=== PATIENT | male | born 2000 | race Hispanic/Latino ===

== ENCOUNTER 2020-03-21 08:45 | Emergency (ER) | payer OTHER ==
[2020-03-21] MEDS ORDERED: SODIUM CHLORIDE 0.9% 1000ML 1,000 ML IV ONE ×2 (09:07→09:58)
[2020-03-21 09:08] LABS: BASOPHILS % (AUTO) 0.4 % (0.0-5.0); EOSINOPHILS % (AUTO) 4.3 % (0.0-8.0); HEMATOCRIT 39.9 % (42-54); LYMPHOCYTES % (AUTO) 38.5 % (21.0-51.0); MEAN CORPUSCULAR HEMOGLOBIN 30.2 pg (27.0-33.0); MEAN CORPUSCULAR HGB CONC 34.6 g/dL (32.0-36.0); MEAN CORPUSCULAR VOLUME 87.3 fL (80-100); MONOCYTES % (AUTO) 12.4 % (3.0-13.0); NEUTROPHILS % (AUTO) 44.3 % (40.0-77.0); PLATELET COUNT (AUTO) 254 K/uL (130-400); RED BLOOD CELL COUNT(AUTO) 4.57 MIL/uL (4.50-6.20); RED CELL DISTRIBUTION WIDTH 12.9 % (11.0-15.5); WHITE BLOOD COUNT (AUTO) 6.7 K/uL (4.8-10.8)
[2020-03-21] MEDS ORDERED: DiphenhydrAMINE HCL 50 MG/ML VIAL ONE (09:09)
[2020-03-21] MEDS ORDERED: ONDANSETRON HCL 4 MG/2 ML VIAL ONE (09:09)
[2020-03-21] MEDS ORDERED: MORPHINE SULFATE 4 MG/1ML SYG ONE (09:10)
[2020-03-21 09:14] LABS: APPEARANCE,URINE Clear (CLEAR); BILIRUBIN,URINE Negative (NEGATIVE); COLOR,URINE Yellow (YELLOW); GLUCOSE, URINE (UA) Negative (NEGATIVE); KETONES,URINE Trace mg/dL (NEGATIVE); LEUKOCYTE ESTERASE ,URINE Negative (NEGATIVE); NITRATE,URINE Negative (NEGATIVE); OCCULT BLOOD,URINE Negative (NEGATIVE); PH,URINE 5.5 (5.0-8.0); PROTEIN,URINE Negative (NEGATIVE)
[2020-03-21 09:29] LABS: ALBUMIN 4.4 g/dL (3.5-5.0); BILIRUBIN,TOTAL 0.8 mg/dL (0.2-1.0); CREATININE 1.3 mg/dL (0.5-1.5); TOTAL PROTEIN, SERUM 8.4 g/dL (6.0-8.3)
[2020-03-21 09:30] LABS: POTASSIUM 2.9 mmol/L (3.5-5.1)
[2020-03-21] MEDS ORDERED: POTASSIUM CHLORIDE 10MEQ/100ML 100 ML IV ONE (09:57)
[2020-03-21] MEDS ORDERED: LIDOCAINE HCL-MPF 1% 2ML VIAL ONE (09:57)
[2020-03-21] MEDS ORDERED: IOHEXOL-350 75 ML VIAL IV ONE (09:58)
[2020-03-21 10:01] LABS: RBC,URINE None Seen /HPF (0-1); WBC,URINE 0-1 /HPF (0-1)
[2020-03-21 10:02] LABS: BACTERIA,URINE Few /HPF (None Seen); SQUAMOUS EPITHELIAL CELL,UR 0-2 /HPF (0-2)
[2020-03-21] MEDS ORDERED: LORAZEPAM 2 MG/ML 1 ML VIAL ONE (10:28)
== END 2020-03-21 12:14 | disposition home or self-care (01) ==
LOC: EDH 08:45
DX: R10.30 Lower abdominal pain, unspecified (principal); Z91.013 Allergy to seafood
CPT/HCPCS: 36415; 74177; 80053; 81001; 82150; 83690; 85025; 96361; 96365; 96366; 96375; 99285; J1200; J2060; J2270; J2405; J3490; J7030 ×2; Q9967

== ENCOUNTER 2024-05-25 15:53 | Emergency (ER) | payer BC ==
[~2024-05-25] VITALS: Ht 175.3 cm; Wt 99.8 kg
[2024-05-25 16:22] LABS: BASOPHILS # (AUTO) 0.01 K/uL (0.00-0.20); BASOPHILS % (AUTO) 0.1 % (0.0-5.0); EOSINOPHILS # (AUTO) 0.12 K/uL (0.00-0.70); EOSINOPHILS % (AUTO) 1.4 % (0.0-8.0); HEMATOCRIT 40.9 % (42-54); IMMATURE GRANULOCYTE ABSOLUTE 0.03 K/uL (0-1); LYMPHOCYTES # (AUTO) 2.4 K/uL (1.0-4.8); LYMPHOCYTES % (AUTO) 27.8 % (21.0-51.0); MEAN CORPUSCULAR HEMOGLOBIN 30.2 pg (27.0-33.0); MEAN CORPUSCULAR HGB CONC 34.7 g/dL (32.0-36.0); MONOCYTES # (AUTO) 0.8 K/uL (0.1-1.0); MONOCYTES % (AUTO) 9.5 % (3.0-13.0); NEUTROPHILS # (AUTO) 5.3 K/uL (1.8-7.7); NEUTROPHILS % (AUTO) 60.9 % (40.0-77.0); PLATELET COUNT (AUTO) 226 K/uL (130-400); RED CELL DISTRIBUTION WIDTH 12.8 % (11.0-15.5); WHITE BLOOD COUNT (AUTO) 8.7 K/uL (4.8-10.8)
[2024-05-25 16:36] LABS: CREATININE 1.5 mg/dL (0.5-1.3); MAGNESIUM 1.3 mg/dL (1.80-2.40)
--- NOTE | 2024-05-25 16:44 | ERN ---
ED Note History of Present Illness Stated Complaint: DIZZINESS Chief Complaint: Dizzy/Light Headed Time Seen by MD: 15:55 Time Seen by Midlevel: 15:55 Dictation: 23-year-old male who presents to the ED for evaluation of right-sided chest pain that he noted while eating. Reports some associated nausea vomiting. No past medical history. Reports he has had some chronic abdominal pain for the past two months and is going to see a bailiff soon Allergies: Coded Allergies: No Known Drug Allergies (Unverified Allergy, Unknown, 05/25/24) Home Meds Active Scripts Famotidine (Famotidine) 20 Mg Tablet, 1 TAB PO BID for 30 Days, #60 TAB 0 Refills Prov:JASE WHARTON 05/25/24 Dicyclomine HCl (Bentyl) 10 Mg Cap, 1 CAP PO Q6HPRN PRN for irritable bowel symptoms for 10 Days, #30 CAP 0 Refills Prov:JASE WHARTON 05/25/24 Ondansetron (Ondansetron Odt) 4 Mg Tab.rapdis, 1 TAB PO Q6HPRN PRN for nausea/vomiting for 4 Days, #16 TAB 0 Refills Prov:JASE WHARTON 05/25/24 Cephalexin Monohydrate (Keflex) 500 Mg Cap, 500 MG PO QID for 7 Days, #28 CAP Prov:JASE WHARTON 05/25/24 Past Medical History Past Medical History: GERD Surgical History: None RN Note Reviewed/Agreed w/PFSH: Yes Review of System Dictation Constitutional: Negative for fever,chills, and weight loss Eyes: Negative for injury, pain,redness, and discharge ENT: Negative for injury,pain or swelling Cardiovascular: Negative for palpitations, and edema Respiratory: Negative for shortness of breath, cough, and wheezing, Abdomen/GI: Negative for abdominal pain, nausea, vomiting, diarrhea, and constipation Back: Negative for injury and pain : Negative for injury, bleeding and discharge MS/Extremity: Negative for injury and deformity Skin: Negative for rash, and discoloration Neuro: Negative for headache, weakness, numbness, tingling, and seizure Psych: Negative for suicide ideation, homicidal ideation, and hallucinations Review of Systems: was completed Initial Vital Sign VS Vital Signs Date Time Temp Pulse Resp B/P (MAP) Pulse Ox O2 Delivery O2 Flow Rate FiO2 05/25/24 15:55 98.2 110 16 149/88 98 Room Air* 0 21 Physical Exam Dictation General: awake, alert, NAD Head/Face: Normocephalic, atraumatic Eyes: PERRL, EOMI, vision at baseline ENT: oral cavity clear, TMs clear, no signs of infection Neck: Trachea midline, supple, no nuchal rigidity Cardiovascular: RRR, normal S1/S2, No MRGs, no JVD Respiratory: CTAB, no respiratory distress, No rales or wheezes Abdomen: Soft, non-tender, non-distended, normal bowel sounds, no guarding or rebound. Skin: Warm, dry, normal turgor, no rash MS/Extremity: Pulses equal, no cyanosis, neurovascular intact, FROM Neuro: COAx4, GCS 15, strength 5/5, CN 2-12 intact, normal cerebellar exam, norm al gait, Psych: Normal behavior, mood, and affect normal Results (Laboratory/Radiology) Laboratory/Radiology Laboratory Tests Test 05/25/24 16:17 05/25/24 16:40 White Blood Count 8.7 K/uL (4.8-10.8) Red Blood Count 4.70 MIL/uL (4.50-6.20) Hemoglobin 14.2 g/dL (14.0-18.0) Hematocrit 40.9 % (42-54) L Mean Corpuscular Volume 87.0 fL (79-99) Mean Corpuscular Hemoglobin 30.2 pg (27.0-33.0) Mean Corpuscular Hemoglobin Concent 34.7 g/dL (32.0-36.0) Red Cell Distribution Width 12.8 % (11.0-15.5) Platelet Count 226 K/uL (130-400) Mean Platelet Volume 10.4 fL (7.5-10.5) Immature Granulocyte % (Auto) 0.3 % (0-1) Neutrophils (%) (Auto) 60.9 % (40.0-77.0) Lymphocytes (%) (Auto) 27.8 % (21.0-51.0) Monocytes (%) (Auto) 9.5 % (3.0-13.0) Eosinophils (%) (Auto) 1.4 % (0.0-8.0) Basophils (%) (Auto) 0.1 % (0.0-5.0) Neutrophils # (Auto) 5.3 K/uL (1.8-7.7) Lymphocytes # (Auto) 2.4 K/uL (1.0-4.8) Monocytes # (Auto) 0.8 K/uL (0.1-1.0) Eosinophils # (Auto) 0.12 K/uL (0.00-0.70) Basophils # (Auto) 0.01 K/uL (0.00-0.20) Absolute Immature Granulocyte (auto 0.03 K/uL (0-1) Nucleated Red Blood Cells 0.0 % (0.0-0.19) Sodium Level 142 mmol/L (136-145) Potassium Level 2.8 mmol/L (3.5-5.1) *L Chloride Level 100 mmol/L (101-111) L Carbon Dioxide Level 31 mmol/L (21-32) Blood Urea Nitrogen 23 mg/dL (7-18) H Creatinine 1.5 mg/dL (0.5-1.3) H Glomerular Filtration Rate Calc 66 mL/min (>90) Random Glucose 104 mg/dL (70-105) Total Calcium 9.1 mg/dL (8.5-10.1) Magnesium Level 1.30 mg/dL (1.80-2.40) L Total Bilirubin 0.4 mg/dL (0.2-1.0) Direct Bilirubin 0.1 mg/dL (0.0-0.3) Aspartate Amino Transf (AST/SGOT) 19 U/L (10-37) Alanine Aminotransferase (ALT/SGPT) 38 U/L (12-78) Alkaline Phosphatase 127 U/L (50-136) Troponin I High Sensitivity 4 ng/L (4-75) B-Type Natriuretic Peptide < 5 pg/mL (0-100) Total Protein 8.1 g/dL (6.0-8.3) Albumin 4.3 g/dL (3.5-5.0) Lipase 33 U/L (16-77) Urine Color LIGHT-YELLOW (YELLOW) Urine Appearance CLEAR (CLEAR) Urine pH 5.5 (5.0-8.0) Urine Specific [place] 1.022 (1.001-1.031) Urine Protein NEGATIVE mg/dL (NEGATIVE) Urine Glucose (UA) NEGATIVE mg/dL (NEGATIVE) Urine Ketones NEGATIVE mg/dL (NEGATIVE) Urine Occult Blood NEGATIVE (NEGATIVE) Urine Nitrate NEGATIVE (NEGATIVE) Urine Bilirubin NEGATIVE mg/dL (NEGATIVE) Urine Urobilinogen 0.2 mg/dL (0.2-1.0) Urine Leukocyte Esterase 25 Brooks/uL (NEGATIVE) H Urine RBC 0-1 /HPF (0-1) Urine WBC 0-1 /HPF (0-1) Urine Squamous Epithelial Cells RARE /HPF (0-2) Urine Bacteria None /HPF (None Seen) Urine Opiates Screen NEGATIVE (NEGATIVE) Urine Barbiturates Screen NEGATIVE (NEGATIVE) Urine Phencyclidine Screen NEGATIVE (NEGATIVE) Urine Amphetamines Screen NEGATIVE (NEGATIVE) Urine Benzodiazepines Screen NEGATIVE (NEGATIVE) Urine Cocaine Screen NEGATIVE (NEGATIVE) Urine Marijuana (THC) Screen NEGATIVE (NEGATIVE) Labs Reviewed?: Yes EKG Comment: Date:05/25/2024 Time:1604 Ventricular rate:94 GA interval:144 QRS duration:106 QT/QTc:350 EKG interpretation: Normal sinus rhythm, no dysrhythmia, no STEMI. Reviewed by ED Attending X-RAY Comment: REASON: chest pain ORDERING PHYSICIAN: JASE WHARTON PROCEDURE: CXR1VW - CHEST 1VW CHEST 1VW HISTORY: Chest pain COMPARISON: None FINDINGS: A frontal projection of the chest was obtained. No acute pulmonary infiltrates is seen. The heart is normal in size. Prominent interstitial markings are seen. No evidence of aortic calcification is seen. IMPRESSION: 1. No acute pulmonary infiltrate is seen. Ultrasound Comment: REASON: RUQ PAIN ORDERING PHYSICIAN: JASE WHARTON PROCEDURE: [id number] - US ABDOMINAL RUQ\LTD ULTRASOUND ABDOMEN LIMITED INDICATION: Right upper abdominal pain COMPARISON: None FINDINGS: The liver is normal in size and echogenicity; no focal lesion demonstrated. Main portal vein is patent, and normal direction of vascular flow demonstrated. The common bile duct diameter measures 2.6 mm. No evidence for calculi, sludge or pericholecystic fluid. No sonographic Samson's sign elicited by the ultrasound typecasting machine operator. Wall thickness measures 1.9 mm. Pancreas was not well-demonstrated. The right kidney measures 10.0 x 5.0 x 5.0 cm,and is normal in echogenicity, without evidence for hydronephrosis.No shadowing stones demonstrated. No free fluid demonstrated. IMPRESSION: Limitations as reported. No acute right upper abdominal abnormality noted. ED Course ED Course Orders Procedure Category Date Status Time 12 Lead Ekg Tracing- EKG 05/25/24 Complete Technical 15:57 Cbc With Differential LAB 05/25/24 Complete 16:01 B-Type Natriuretic LAB 05/25/24 Complete Peptide 16:01 Chest 1vw RAD 05/25/24 Resulted 16:01 Magnesium LAB 05/25/24 Complete 16:01 Troponin I High LAB 05/25/24 Complete Sensitivity 16:01 Urinalysis Profile LAB 05/25/24 Complete 16:01 Basic Metabolic Panel LAB 05/25/24 Complete 16:01 Drug Screen Urine LAB 05/25/24 Complete 16:01 Lidocaine Hcl 2% PHA 05/25/24 Complete Viscous (Lidocaine Hcl 17:00 Mag/Alum/Simeth 30ml PHA 05/25/24 Complete (Maalox Plus 30ml) 17:00 Dicyclomine Hcl PHA 05/25/24 Complete (Bentyl 10mg/5ml 17:00 Us Abdominal Ruq\Ltd US 05/25/24 Resulted 16:43 Potassium Chloride PHA 05/25/24 In Process 20meq Er (K-Dur/Klor- 16:47 Magnesium Oxide PHA 05/25/24 Complete (Mag-Ox) 17:23 Ceftriaxone 1g Vial PHA 05/25/24 Complete (Rocephine 1g Inj) 17:25 Hepatic Function Panel LAB 05/25/24 Complete 17:26 Lipase LAB 05/25/24 Complete 16:17 Mag/Alum/Simeth 30ml PHA 05/25/24 In Process (Maalox Plus 30ml) 18:30 Ceftriaxone 1g Vial PHA 05/25/24 In Process (Rocephine 1g Inj) 18:30 Magnesium Oxide PHA 05/25/24 In Process (Mag-Ox) 18:30 Current Medications Medications (Trade) Dose Ordered Sig/Angel Route PRN Reason Start Time Stop Time Status Last Admin Dose Admin Al Hydroxide/Mg Hydroxide (MAALox PLUS 30ML) 30 ml ONCE PO 05/25/24 18:30 05/25/24 22:30 Al Hydroxide/Mg Hydroxide (MAALox PLUS 30ML) 30 ml ONCE ONCE PO 05/25/24 17:00 05/25/24 17:02 DC 05/25/24 17:02 Ceftriaxone Sodium (ROCEphine 1G INJ) 1 gm ONCE IVPB 05/25/24 17:25 05/25/24 18:24 DC Ceftriaxone Sodium (ROCEphine 1G INJ) 1 gm ONCE IVPB 05/25/24 18:30 06/04/24 18:29 05/25/24 18:50 Dicyclomine HCl (Bentyl 10mg/5ml Syrup) 10 mg ONCE ONCE PO 05/25/24 17:00 05/25/24 17:02 DC 05/25/24 17:02 Lidocaine HCl (Lidocaine HCl 2% Viscous) 10 ml ONCE ONCE PO 05/25/24 17:00 05/25/24 17:02 DC 05/25/24 17:02 Magnesium Oxide (Mag-Ox) 400 mg ONCE PO 05/25/24 17:23 05/25/24 18:35 DC Magnesium Oxide (Mag-Ox) 400 mg ONCE PO 05/25/24 18:30 06/24/24 18:29 05/25/24 18:50 Potassium Chloride (K-Dur/Klor-Con 20meq) 40 meq ONCE PO 05/25/24 16:47 05/25/24 21:45 05/25/24 17:02 Vital Signs Date Time Temp Pulse Resp B/P (MAP) Pulse Ox O2 Delivery O2 Flow Rate FiO2 05/25/24 15:59 98.2 110 16 149/88 96 Room Air 0 05/25/24 15:55 98.2 110 16 149/88 98 Room Air* 0 21 Medical Decision Making MDM MDM: Differential diagnosis: Gastritis, AMI, anxiety, GERD, pancreatitis, electrolyte abnormality, acute dehydration Need for hospitalization: Patient does meet criteria for hospitalization. Need for emergency major/minor surgery: No I independently interpreted the test that were performed, results were reviewed by me and considered findings on radiology if ordered. Medical management and examination interpretation discussions were had by me with other qualified healthcare professionals as indicated for the patient's care. 23-year-old male who presents to the ED for evaluation of right-sided chest pain that he noted while eating. Reports some associated nausea vomiting. No past medical history. Reports he has had some chronic abdominal pain for the past two months and is going to see a bailiff soon. CBC shows no leukocytosis, anemia. CMP shows hypokalemia and hypomagnesemia with a potassium 2.8 which has been managed with 40 mEq of K-Dur and magnesium 1.3 which she was addressed with 500 mg of magnesium oxide. Mild bump in creatinine due to acute dehydration and vomiting. LFTs within normal limits. Lipase within normal limits ruling out pancreatitis. Negative troponin. Urine consistent with UTI with 25 leukocyte esterase. Negative UDS. Ultrasound of the right upper quadrant was ordered to rule out cholelithiasis and cholecystitis with two nausea and vomiting with electrolyte abnormality. Ultrasound showed no acute finding. Patient was given dose of GI cocktail here in the ER with improvement in symptoms. Patient will be discharged home with famotidine for gastritis, Bentyl for abdominal cramping, Zofran for nausea, Keflex for UTI. Recommended follow up with PCP. Return precautions discussed with patient. Patient verbalized understanding, agreed with plan, and all questions were answered at this time. DX & DISP Disposition: Discharge Departure Impression: Primary Impression: Gastritis Additional Impressions: Hypokalemia, Hypomagnesemia, UTI (urinary tract infection) Condition: Stable Scripts Famotidine (Famotidine) 20 Mg Tablet 1 TAB PO BID for 30 Days, #60 TAB 0 Refills Prov: JASE WHARTON 05/25/24 Dicyclomine HCl (Bentyl) 10 Mg Cap 1 CAP PO Q6HPRN PRN for irritable bowel symptoms for 10 Days, #30 CAP 0 Refills Prov: JASE WHARTON 05/25/24 Ondansetron (Ondansetron Odt) 4 Mg Tab.rapdis 1 TAB PO Q6HPRN PRN for nausea/vomiting for 4 Days, #16 TAB 0 Refills Prov: JASE WHARTON 05/25/24 Cephalexin Monohydrate (Keflex) 500 Mg Cap 500 MG PO QID for 7 Days, #28 CAP Prov: JASE WHARTON 05/25/24 Additional Instructions: DISCHARGE HOME. REST. FOLLOW UP WITH PRIMARY CARE IN 24 HOURS. RETURN TO THE ER FOR ANY ACUTE CHANGE. PATIENT WAS ALSO ADVISED TO FOLLOW-UP WITH PRIMARY CARE PHYSICIAN IN 1 TO 2 DAYS FOR CONTINUED MONITORING. ALL INSTRUCTIONS WERE GIVEN TO LAYMANS TERM AND PATIENT AGREEABLE TO DISCHARGE AND PROPER FOLLOW-UP. Referrals: NONE (PCP) I have reviewed the case, and I agree with, Diagnosis and Plan JASE WHARTON May 25, 2024 16:44
[2024-05-25 16:46] LABS: POTASSIUM 2.8 mmol/L (3.5-5.1)
[2024-05-25 16:59] LABS: APPEARANCE,URINE CLEAR (CLEAR); BILIRUBIN,URINE NEGATIVE (NEGATIVE); COLOR,URINE LIGHT-YELLOW (YELLOW); GLUCOSE, URINE (UA) NEGATIVE (NEGATIVE); KETONES,URINE NEGATIVE (NEGATIVE); LEUKOCYTE ESTERASE ,URINE 25 Leu/uL (NEGATIVE); NITRATE,URINE NEGATIVE (NEGATIVE); OCCULT BLOOD,URINE NEGATIVE (NEGATIVE); PH,URINE 5.5 (5.0-8.0); PROTEIN,URINE NEGATIVE (NEGATIVE); UROBILINOGEN,URINE 0.2 mg/dL (0.2-1.0)
[2024-05-25 17:00] LABS: B-TYPE NATRIURETIC PEPTIDE < 5 pg/mL (0-100)
[2024-05-25 17:02] LABS: ADD UA MICROSCOPIC YES
[2024-05-25] MEDS: PoTASSium chloRIDE 20MEQ ER 20 MEQ ERTAB PO SCH (17:02)
[2024-05-25] MEDS: LIDOCAINE HCL 2% VISCOUS 15 ML UDCUP PO ONE (17:02)
[2024-05-25] MEDS: MAG/ALUM/SIMETH 30 ML UDCUP PO ONE (17:02)
[2024-05-25] MEDS: DICYCLOMINE HCL 10 MG/5 ML ML PO ONE (17:02)
--- NOTE | 2024-05-25 17:03 | HMCIMG ---
CHEST 1VW HISTORY: Chest pain COMPARISON: None FINDINGS: A frontal projection of the chest was obtained. No acute pulmonary infiltrates is seen. The heart is normal in size. Prominent interstitial markings are seen. No evidence of aortic calcification is seen. IMPRESSION: 1. No acute pulmonary infiltrate is seen.
[2024-05-25 17:04] LABS: AMPHET/METH SCREEN,URINE NEGATIVE (NEGATIVE); BARBITURATE SCREEN, URINE NEGATIVE (NEGATIVE); BENZODIAZEPINES SCREEN,URINE NEGATIVE (NEGATIVE); CANNABINOID SCREEN,URINE NEGATIVE (NEGATIVE); COCAINE SCREEN,URINE NEGATIVE (NEGATIVE); OPIATE SCREEN,URINE NEGATIVE (NEGATIVE); PHENCYCLIDINE SCREEN,URINE NEGATIVE (NEGATIVE)
[2024-05-25 17:06] LABS: MUCUS,URINE RARE LPF (None Seen); RBC,URINE 0-1 /HPF (0-1); SQUAMOUS EPITHELIAL CELL,UR RARE /HPF (0-2); WBC,URINE 0-1 /HPF (0-1)
[2024-05-25] MEDS ORDERED: MAGNESIUM OXIDE 400 MG TABLET PO SCH (17:23)
[2024-05-25] MEDS ORDERED: cefTRIAXone 1G VIAL IVPB SCH (17:25)
[2024-05-25 18:21] LABS: ALBUMIN 4.3 g/dL (3.5-5.0); BILIRUBIN,DIRECT 0.1 mg/dL (0.0-0.3); BILIRUBIN,TOTAL 0.4 mg/dL (0.2-1.0); TOTAL PROTEIN, SERUM 8.1 g/dL (6.0-8.3)
--- NOTE | 2024-05-25 18:28 | EKG ---
[facility] Test Date: 2024-05-25 Test Time: 16:04:11 Pat Name: VALENCIA CRAVEN Department: ED Room: Gender: M Transliterator: 09 : 2000 Requested By: JASE WHARTON Order Number: [id number] Reading MD: Michael Briones Measurements Intervals [place] Rate: 94 P: 71 IN: 144 QRS: 80 QRSD: 106 T: -7 QT: 350 QTc: 439 Interpretive Statements Sinus rhythm Borderline ST elevation, anterior leads No previous ECG available for comparison Electronically Signed On 05-30-2024 07:12:28 CDT by Michael Briones Please click the below link to view image of tracing.
[2024-05-25] MEDS ORDERED: MAG/ALUM/SIMETH 30 ML UDCUP PO SCH (18:30)
--- NOTE | 2024-05-25 18:46 | HMCIMG ---
ULTRASOUND ABDOMEN LIMITED INDICATION: Right upper abdominal pain COMPARISON: None FINDINGS: The liver is normal in size and echogenicity; no focal lesion demonstrated. Main portal vein is patent, and normal direction of vascular flow demonstrated. The common bile duct diameter measures 2.6 mm. No evidence for calculi, sludge or pericholecystic fluid. No sonographic Samson's sign elicited by the ultrasound all around gear machine operator. Wall thickness measures 1.9 mm. Pancreas was not well-demonstrated. The right kidney measures 10.0 x 5.0 x 5.0 cm,and is normal in echogenicity, without evidence for hydronephrosis.No shadowing stones demonstrated. No free fluid demonstrated. IMPRESSION: Limitations as reported. No acute right upper abdominal abnormality noted.
[2024-05-25] MEDS: cefTRIAXone 1G VIAL IVPB SCH (18:50)
[2024-05-25] MEDS: MAGNESIUM OXIDE 400 MG TABLET PO SCH (18:50)
[2024-05-25] MEDS ORDERED: ONDA-243 PO (19:03)
[2024-05-25] MEDS ORDERED: CEPH500B PO (19:03)
[2024-05-25] MEDS ORDERED: FAMO20TA8 PO (19:03)
[2024-05-25] MEDS ORDERED: DICY10 PO (19:03)
[2024-05-25 19:24] VITALS: BP 131/71; PULSE 79; RESP 15; TEMP 97.3; O2SAT 100
== END 2024-05-25 19:25 | disposition home or self-care (01) ==
LOC: EDH 15:53
DX: K29.70 Gastritis, unspecified, without bleeding (principal); E87.6 Hypokalemia; N39.0 Urinary tract infection, site not specified; E83.42 Hypomagnesemia; R42 Dizziness and giddiness; R11.2 Nausea with vomiting, unspecified; K21.9 Gastro-esophageal reflux disease without esophagitis; Z79.899 Other long term (current) drug therapy
CPT/HCPCS: 99284; 96374; 76705; 71045; 80076; 83735; 84484; 80048; 83880; 80305; 83690; 85025; 36415; 93005; 81001; J0696